=== PATIENT | female | born 1975 | race Caucasian/White ===

== ENCOUNTER 2017-09-22 00:53 | Emergency (ER) | payer BC ==
[~2017-09-22] VITALS: Ht 167.6 cm; Wt 78.2 kg
[2017-09-22 01:53] LABS: HEMATOCRIT 39.7 % (37.0-47.0); HEMOGLOBIN 12.8 g/dL (12.5-16.0); MEAN CELL VOLUME 90 fl (78-100); MEAN CORPUSCULAR HEMOGLOBIN 29 pg (27-31); MEAN CORPUSCULAR HGB CONC 32 g/dL (33-37); MEAN PLATELET VOLUME 11.3 fl (7.4-10.4); PLATELET COUNT 213 K/mm3 (130-400); RED BLOOD COUNT 4.41 M/mm3 (4.10-5.30); RED CELL DISTRIBUTION WIDTH 16.9 % (11.5-14.5)
[2017-09-22 02:04] LABS: ALBUMIN 4.4 g/dL (3.5-5.0); BUN/CREATININE RATIO 18.1 (6.0-26.0); CALCIUM 9.1 mg/dL (8.4-10.2); POTASSIUM 5.4 mmol/L (3.6-5.0); TOTAL BILIRUBIN 0.9 mg/dL (0.2-1.3); TOTAL PROTEIN 7.6 g/dL (6.3-8.2)
[2017-09-22 02:07] LABS: URINE APPEARANCE CLEAR; URINE BILIRUBIN NEGATIVE (NEGATIVE); URINE BLOOD 50 ery/uL (NEGATIVE); URINE COLOR YELLOW; URINE GLUCOSE NEGATIVE (NEGATIVE); URINE KETONE NEGATIVE (NEGATIVE); URINE LEUKOCYTE ESTERASE NEGATIVE (NEGATIVE); URINE NITRATE NEGATIVE (NEGATIVE); URINE PROTEIN(semi-quant) NEGATIVE (NEGATIVE); URINE UROBILINOGEN NORMAL (NORMAL)
[2017-09-22 02:08] LABS: URINE MUCUS PRESENT (NOT PRESENT)
[2017-09-22 02:14] LABS: LYMPHOCYTE 46 % (20-51); MONOCYTE 7 % (3-10); NEUTROPHILS 28 % (42-75)
[2017-09-22] MEDS ORDERED: PREDNISONE10 MG PO (03:38)
[2017-09-22] MEDS ORDERED: TRAMADOL 50 MG TAB PO (03:38)
[2017-09-22 03:45] VITALS: BP 124/68
== END 2017-09-22 03:45 | disposition home or self-care (01) ==
LOC: ED 00:53
PROVIDERS: Family Medicine
DX: R10.13 Epigastric pain (principal); R10.12 Left upper quadrant pain; D72.1 Eosinophilia; R19.7 Diarrhea, unspecified; F17.200 Nicotine dependence, unspecified, uncomplicated
CPT/HCPCS: J1885; J3490; J7030